=== PATIENT | female | born 1995 | race Caucasian/White ===

== ENCOUNTER → 2017-04-17 | Outpatient (CLI) | payer OTHER ==
[~2017-04-17] MED LIST: AMIT10 PO; AZIT250 PO; BCP'S; BIRTH CONTROL; CEPH500 PO; CODBUTACEC PO; Esgic Tablet1 EACH PO; Excedrin Extra1 EACH PO; FLUO10 PO; FLUT.05NI; IBUP600 PO; METR250 PO; MONT10T PO; ONDA8ODT MM; Ortho Tri-Cycl1 EACH; Prilosec20 MG PO; RXOXYACE PO; SUMA25 PO; Zofran Odt4 MG SL; Zofran4 MG PO
[2017-04-17 12:09] LABS: Specimen Source CERVIX
[2017-04-18 03:28] LABS: Source Cervix
== END ==
LOC: LAB 11:14
PROVIDERS: Advanced Practice Midwife
DX: Z11.3 Encounter for screening for infections with a predominantly sexual mode of transmission (principal)
CPT/HCPCS: 87491; 87591

== ENCOUNTER 2017-06-01 10:44 | Emergency (ER) | payer OTHER ==
[~2017-06-01] VITALS: Ht 162.6 cm; Wt 65.8 kg
[2017-06-01 11:10] LABS: BASOPHILS ABSOLUTE AUTO 0.03 K/mm3 (0.00-0.23); BASOPHILS PERCENT AUTO 0 % (0-2); EOSINOPHILS PERCENT AUTO 1 % (0-6); Hemoglobin 12.3 g/dL (11.5-16.0); IMMATURE GRAN ABSOLUTE AUTO 0.05 K/mm3 (0.00-0.10); IMMATURE GRAN PERCENT AUTO 0 % (0-1); LYMPHOCYTES ABSOLUTE AUTO 1.95 K/mm3 (0.84-5.20); LYMPHOCYTES PERCENT AUTO 14 % (21-46); MONOCYTES ABSOLUTE AUTO 0.55 K/mm3 (0.16-1.47); MONOCYTES PERCENT AUTO 4 % (4-13); Mean Corpuscular HGB 33.9 pg (26.0-34.0); Mean Corpuscular HGB Conc 33.2 g/dL (31.5-36.5); Mean Corpuscular Volume 102 fL (80-100); Mean Platelet Volume 9.5 fL (9.1-12.4); NEUTROPHILS ABSOLUTE AUTO 11.18 K/mm3 (1.96-9.15); NEUTROPHILS PERCENT AUTO 81 % (41-73); Platelet Count 275 K/mm3 (150-400); RDW Coefficient Variation 13.3 % (11.7-14.2); RDW Standard Deviation 50.1 fL (35.1-46.3); Red Blood Cell Count 3.63 M/mm3 (3.80-5.20); White Blood Cell Count 13.86 K/mm3 (4.00-11.30)
[2017-06-01 11:33] LABS: Alanine Aminotransfer (ALT/SGP 13 U/L (12-78); Albumin, Blood 3.5 g/dL (3.4-5.0); Albumin/Globulin Ratio 0.9 (0.8-1.8); Alk Phos 52 U/L (50-136); Anion Gap 8 mmol/L (6-16); Aspartate Aminotrans (AST/SGOT 5 U/L (12-37); Bilirubin, Total 0.3 mg/dL (0.1-1.0); Blood Urea Nitrogen 10 mg/dL (8-24); Bun/Creatinine Ratio 18.6 (12.0-20.0); CO2, Blood 20 mmol/L (21-32); Calcium, Blood 8.7 mg/dL (8.5-10.1); Chloride, Blood 109 mmol/L (98-108); Creatinine, Blood 0.54 mg/dL (0.40-1.00); Globulin, Blood 3.8 g/dL (2.2-4.0); Glomerular Filtration Rate >60 (60-); Glucose, Blood 89 mg/dL (70-99); Potassium, Blood 3.4 mmol/L (3.5-5.5); Sodium, Blood 137 mmol/L (136-145); Total Protein, Blood 7.3 g/dL (6.4-8.2)
[2017-06-01] MEDS ORDERED: Zofran Odt4 MG SL (12:31)
[2017-06-01] MEDS ORDERED: Esgic Tablet1 EACH PO (12:31)
== END 2017-06-01 12:55 | disposition home or self-care (01) ==
LOC: ER 10:44
PROVIDERS: Emergency Medicine
DX: O99.351 Diseases of the nervous system complicating pregnancy, first trimester (principal); G43.909 Migraine, unspecified, not intractable, without status migrainosus; O99.511 Diseases of the respiratory system complicating pregnancy, first trimester; J45.909 Unspecified asthma, uncomplicated; O99.331 Smoking (tobacco) complicating pregnancy, first trimester; F17.200 Nicotine dependence, unspecified, uncomplicated; Z88.1 Allergy status to other antibiotic agents; Z88.8 Allergy status to other drugs, medicaments and biological substances; Z3A.12 12 weeks gestation of pregnancy
CPT/HCPCS: 36415; 80053; 85025; J0780; J2405; J7030

== ENCOUNTER → 2017-10-02 | Outpatient (CLI) | payer OTHER | END | disposition home or self-care (01) | LOC: LAB 14:40 → LAB SHORT 14:40 | DX: Z34.00 Encounter for supervision of normal first pregnancy, unspecified trimester (principal) | CPT/HCPCS: 87081; 87653 ==

== ENCOUNTER 2017-10-24 15:13 | Inpatient (IN) | payer OTHER ==
[~2017-10-24] VITALS: Ht 152.4 cm; Wt 76.2 kg
[2017-10-24 18:13] LABS: BASOPHILS ABSOLUTE AUTO 0.04 K/mm3 (0.00-0.23); BASOPHILS PERCENT AUTO 0 % (0-2); EOSINOPHILS ABSOLUTE AUTO 0.03 K/mm3 (0.00-0.68); EOSINOPHILS PERCENT AUTO 0 % (0-6); IMMATURE GRAN ABSOLUTE AUTO 0.17 K/mm3 (0.00-0.10); IMMATURE GRAN PERCENT AUTO 1 % (0-1); LYMPHOCYTES ABSOLUTE AUTO 1.84 K/mm3 (0.84-5.20); LYMPHOCYTES PERCENT AUTO 8 % (21-46); MONOCYTES ABSOLUTE AUTO 1.12 K/mm3 (0.16-1.47); MONOCYTES PERCENT AUTO 5 % (4-13); Mean Corpuscular HGB Conc 33.3 g/dL (31.5-36.5); Mean Corpuscular Volume 102 fL (80-100); NEUTROPHILS ABSOLUTE AUTO 19.66 K/mm3 (1.96-9.15); NEUTROPHILS PERCENT AUTO 86 % (41-73); Platelet Count 274 K/mm3 (150-400); RDW Coefficient Variation 12.9 % (11.7-14.2); RDW Standard Deviation 48.2 fL (35.1-46.3); Red Blood Cell Count 4.12 M/mm3 (3.80-5.20); White Blood Cell Count 22.86 K/mm3 (4.00-11.30)
[2017-10-25 05:16] LABS: Hematocrit 35.7 % (33.0-51.0); Hemoglobin 12.1 g/dL (11.5-16.0); Mean Corpuscular HGB 34.6 pg (26.0-34.0); Mean Corpuscular HGB Conc 33.9 g/dL (31.5-36.5); Mean Corpuscular Volume 102 fL (80-100); Mean Platelet Volume 9.8 fL (9.1-12.4); Platelet Count 248 K/mm3 (150-400); RDW Standard Deviation 48.2 fL (35.1-46.3)
[2017-10-25 12:48] LABS: Performing Lab LABCORP; Test Name CYTOGENETICS
[2017-10-25 13:19] LABS: U Amphetamine Screen Not Detected; U Barbituate Screen DETECTED; U Benzodiazapine Screen Not Detected; U Buprenorphine Screen Not Detected; U Cannabinoids Screen Not Detected; U Cocaine Screen Not Detected; U Methadone Screen Not Detected; U Methamphetamine Screen Not Detected; U Opiates Screen Not Detected; U Oxycodone Screen DETECTED; U Phencyclidine Screen Not Detected; U Propoxyphene Screen Not Detected
[2017-10-25 15:57] LABS: Hematocrit 36.3 % (33.0-51.0); Hemoglobin 12.3 g/dL (11.5-16.0); Mean Corpuscular HGB 35.4 pg (26.0-34.0); Mean Corpuscular HGB Conc 33.9 g/dL (31.5-36.5); Platelet Count 244 K/mm3 (150-400); RDW Coefficient Variation 13.1 % (11.7-14.2); RDW Standard Deviation 49.8 fL (35.1-46.3); Red Blood Cell Count 3.47 M/mm3 (3.80-5.20); White Blood Cell Count 20.72 K/mm3 (4.00-11.30)
[2017-10-25 16:05] LABS: Mean Corpuscular Volume 105 fL (80-100)
== END 2017-10-25 18:45 | disposition home or self-care (01) | DRG 775 ==
LOC: OBS 15:13 → BC 15:15 → OBS 16:07 → BC 16:09
PROVIDERS: Advanced Practice Midwife
PROC: 10E0XZZ Delivery of Products of Conception, External Approach (ICD-10-PCS; principal; 2017-10-24)
PROC: 10907ZC Drainage of Amniotic Fluid, Therapeutic from Products of Conception, Via Natural or Artificial Opening (ICD-10-PCS; 2017-10-24)
PROC: 0UQMXZZ Repair Vulva, External Approach (ICD-10-PCS; 2017-10-24)
DX: O36.4XX0 Maternal care for intrauterine death, not applicable or unspecified (principal); O99.355 Diseases of the nervous system complicating the puerperium; O99.13 Other diseases of the blood and blood-forming organs and certain disorders involving the immune mechanism complicating the puerperium; Z37.1 Single stillbirth; Z3A.38 38 weeks gestation of pregnancy; O99.52 Diseases of the respiratory system complicating childbirth; J45.909 Unspecified asthma, uncomplicated; O69.81X0 Labor and delivery complicated by cord around neck, without compression, not applicable or unspecified; O70.0 First degree perineal laceration during delivery; D72.829 Elevated white blood cell count, unspecified; G43.909 Migraine, unspecified, not intractable, without status migrainosus; F43.21 Adjustment disorder with depressed mood; O99.345 Other mental disorders complicating the puerperium
CPT/HCPCS: 36415; 51702; 76815; 84443; 85025; 85027; 86592; 86850; 86900; 86901; 99214; J1885; J2405; J2590; J7120

== ENCOUNTER → 2018-05-21 | Outpatient (CLI) | payer OTHER | END | disposition home or self-care (01) | LOC: LAB SHORT 18:16 → LAB 18:16 | PROVIDERS: Advanced Practice Midwife | DX: Z01.419 Encounter for gynecological examination (general) (routine) without abnormal findings (principal) | CPT/HCPCS: G0123 ==

== ENCOUNTER → 2018-11-19 | Outpatient (CLI) | payer OTHER ==
[2018-11-20 06:44] LABS: Candida species (DNA Probe) Negative (NEGATIVE); G. vaginalis (DNA Probe) Positive (NEGATIVE); T. vaginalis (DNA Probe) Negative (NEGATIVE)
== END ==
LOC: LAB 16:50 → LAB SHORT 16:50
PROVIDERS: Advanced Practice Midwife
DX: N76.0 Acute vaginitis (principal)
CPT/HCPCS: 87480; 87510; 87660

== ENCOUNTER → 2019-06-17 | Outpatient (CLI) | payer OTHER ==
[2019-06-19 14:10] LABS: CHLAMYDIA TRACHOMATIS, NAA Positive (Negative); NEISSERIA GONORRHOEAE, NAA Negative (Negative)
== END | disposition home or self-care (01) ==
LOC: LAB SHORT 08:59 → LAB 08:59
PROVIDERS: Obstetrics & Gynecology
DX: Z01.419 Encounter for gynecological examination (general) (routine) without abnormal findings (principal)
CPT/HCPCS: 87491; 87591; G0123

== ENCOUNTER → 2019-07-25 | Outpatient (CLI) | payer OTHER ==
[2019-07-29 09:08] LABS: CHLAMYDIA TRACHOMATIS, NAA Negative (Negative); NEISSERIA GONORRHOEAE, NAA Negative (Negative)
== END | disposition home or self-care (01) ==
LOC: LAB SHORT 10:40 → LAB 10:40
PROVIDERS: Advanced Practice Midwife
DX: Z11.3 Encounter for screening for infections with a predominantly sexual mode of transmission (principal)
CPT/HCPCS: 87491; 87591

== ENCOUNTER 2021-12-02 11:18 | Day surgery (SDC) | payer BC ==
[~2021-12-02] VITALS: Ht 162.6 cm; Wt 85.6 kg
[2021-12-02] MEDS ORDERED: SUMA25 PO (11:57)
== END 2021-12-02 14:13 | disposition home or self-care (01) ==
LOC: ORSCSDS 11:18
PROVIDERS: Podiatrist Foot & Ankle Surgery
PROC: 01BG0ZZ Excision of Tibial Nerve, Open Approach (ICD-10-PCS; principal; 2021-12-02 12:30)
DX: G57.62 Lesion of plantar nerve, left lower limb (principal); J45.909 Unspecified asthma, uncomplicated; E66.9 Obesity, unspecified; Z68.32 Body mass index [BMI] 32.0-32.9, adult; Z87.891 Personal history of nicotine dependence
CPT/HCPCS: 88304; A9270; J1100; J1885; J2001; J2250; J2704; J2795; J3010; J7120

== ENCOUNTER → 2022-06-20 | Outpatient (CLI) | payer BC | END | disposition home or self-care (01) | LOC: LAB SHORT 09:05 → LAB 09:05 | PROVIDERS: Physician Assistant | DX: Z12.4 Encounter for screening for malignant neoplasm of cervix (principal) | CPT/HCPCS: G0145 ==

== ENCOUNTER → 2023-01-15 | Outpatient (CLI) | payer BC ==
[2023-01-17 04:09] LABS: CHLAMYDIA TRACHOMATIS, NAA Negative (Negative)
== END ==
LOC: LAB 11:48 → LAB SHORT 11:48
PROVIDERS: Family Medicine
DX: Z34.01 Encounter for supervision of normal first pregnancy, first trimester (principal); Z3A.01 Less than 8 weeks gestation of pregnancy
CPT/HCPCS: 87086; 87491; 87591

== ENCOUNTER → 2023-07-05 | Outpatient (CLI) | payer BC | LOC: LAB 12:16 → LAB SHORT 12:16 | DX: Z34.83 Encounter for supervision of other normal pregnancy, third trimester (principal) | CPT/HCPCS: 87081; 87150 ==

== ENCOUNTER → 2024-08-18 | Outpatient (CLI) | payer OTHER ==
[~2024-08-18] MED LIST changes: +PRENATAL TABLE1 EAC2 PO
== END ==
LOC: LAB 11:46 → LAB SHORT 11:46
PROVIDERS: Family Medicine
DX: Z12.4 Encounter for screening for malignant neoplasm of cervix (principal)
CPT/HCPCS: G0123

== ENCOUNTER 2024-10-29 18:19 | Inpatient (IN) | payer OTHER ==
[~2024-10-29] VITALS: Ht 162.6 cm; Wt 73.1 kg
[2024-10-29] MEDS ORDERED: Ketorolac Tromethamine 15mg Vial IV ONE (18:50)
[2024-10-29] MEDS ORDERED: NS 1,000 ML IV SCH ×2 (18:50→22:10)
[2024-10-29 19:30] LABS: BASOPHILS ABSOLUTE AUTO 0.05 K/mm3 (0.00-0.23); BASOPHILS PERCENT AUTO 0 % (0-2); EOSINOPHILS ABSOLUTE AUTO 0.01 K/mm3 (0.00-0.68); EOSINOPHILS PERCENT AUTO 0 % (0-6); Hematocrit 34.5 % (33.0-51.0); Hemoglobin 11.7 g/dL (11.5-16.0); IMMATURE GRAN ABSOLUTE AUTO 0.41 K/mm3 (0.00-0.10); IMMATURE GRAN PERCENT AUTO 2 % (0-1); LYMPHOCYTES ABSOLUTE AUTO 0.46 K/mm3 (0.84-5.20); LYMPHOCYTES PERCENT AUTO 2 % (21-46); MONOCYTES ABSOLUTE AUTO 1.06 K/mm3 (0.16-1.47); MONOCYTES PERCENT AUTO 4 % (4-13); Mean Corpuscular HGB Conc 33.9 g/dL (31.5-36.5); Mean Corpuscular Volume 96 fL (80-100); NEUTROPHILS ABSOLUTE AUTO 24.72 K/mm3 (1.96-9.15); NEUTROPHILS PERCENT AUTO 93 % (41-73); NRBC ABSOLUTE 0.00 K/mm3 (0.00-0.02); NRBC Auto 0.0 /100 WBC (0.0-0.2); Platelet Count 265 K/mm3 (150-400); RDW Coefficient Variation 12.2 % (11.7-14.2); RDW Standard Deviation 43.2 fL (35.1-46.3)
[2024-10-29 19:58] LABS: Alanine Aminotransfer (ALT/SGP 62.0 U/L (12-78); Albumin, Blood 3.0 g/dL (3.4-5.0); Albumin/Globulin Ratio 0.6 (0.8-1.8); Anion Gap 10.0 mmol/L (3-11); Aspartate Aminotrans (AST/SGOT 23.0 U/L (12-37); Bilirubin, Total 0.6 mg/dL (0.1-1.0); Blood Urea Nitrogen 12.0 mg/dL (8-24); CO2, Blood 22.0 mmol/L (21-32); Calcium, Blood 9.1 mg/dL (8.5-10.1); Chloride, Blood 104.0 mmol/L (98-108); Creatinine, Blood 0.82 mg/dL (0.40-1.00); Globulin, Blood 4.7 g/dL (2.2-4.0); Glucose, Blood 140.0 mg/dL (70-99); Potassium, Blood 3.0 mmol/L (3.5-5.5); Sodium, Blood 133.0 mmol/L (136-145); Total Protein, Blood 7.7 g/dL (6.4-8.2)
[2024-10-29] MEDS ORDERED: FentaNYL Citrate 50 MCG/ML 2 ML Injection IV ONE ×2 (21:20→22:15)
[2024-10-29] MEDS ORDERED: HYDROmorphone HCl/Pf 1MG SYR IV PRN (22:35)
[2024-10-29] MEDS ORDERED: Magnesium Hydroxide Conc 10 ML UDC PO PRN (22:50)
[2024-10-29] MEDS ORDERED: Vancomycin (Pharmacy Consult) IV SCH (23:00)
[2024-10-29] MEDS ORDERED: Ondansetron HCl 2 MG / ML 2ML Vial IV PRN (23:10)
[2024-10-30] MEDS ORDERED: Ketorolac Tromethamine 15mg Vial IV ONE (00:55)
[2024-10-30 05:57] LABS: BASOPHILS ABSOLUTE AUTO 0.03 K/mm3 (0.00-0.23); BASOPHILS PERCENT AUTO 0 % (0-2); EOSINOPHILS ABSOLUTE AUTO 0.02 K/mm3 (0.00-0.68); EOSINOPHILS PERCENT AUTO 0 % (0-6); Hematocrit 27.2 % (33.0-51.0); Hemoglobin 9.3 g/dL (11.5-16.0); IMMATURE GRAN ABSOLUTE AUTO 0.32 K/mm3 (0.00-0.10); IMMATURE GRAN PERCENT AUTO 1 % (0-1); LYMPHOCYTES ABSOLUTE AUTO 0.93 K/mm3 (0.84-5.20); LYMPHOCYTES PERCENT AUTO 4 % (21-46); MONOCYTES ABSOLUTE AUTO 1.39 K/mm3 (0.16-1.47); MONOCYTES PERCENT AUTO 6 % (4-13); Mean Corpuscular HGB Conc 34.2 g/dL (31.5-36.5); Mean Corpuscular Volume 96 fL (80-100); NEUTROPHILS ABSOLUTE AUTO 20.24 K/mm3 (1.96-9.15); NEUTROPHILS PERCENT AUTO 88 % (41-73); NRBC ABSOLUTE 0.00 K/mm3 (0.00-0.02); NRBC Auto 0.0 /100 WBC (0.0-0.2); Platelet Count 218 K/mm3 (150-400); RDW Coefficient Variation 12.3 % (11.7-14.2); RDW Standard Deviation 43.5 fL (35.1-46.3)
[2024-10-30 07:00] LABS: Alanine Aminotransfer (ALT/SGP 43.0 U/L (12-78); Albumin, Blood 2.3 g/dL (3.4-5.0); Albumin/Globulin Ratio 0.7 (0.8-1.8); Anion Gap 11.0 mmol/L (3-11); Aspartate Aminotrans (AST/SGOT 20.0 U/L (12-37); Bilirubin, Total 0.6 mg/dL (0.1-1.0); Blood Urea Nitrogen 11.0 mg/dL (8-24); CO2, Blood 20.0 mmol/L (21-32); Calcium, Blood 8.2 mg/dL (8.5-10.1); Chloride, Blood 109.0 mmol/L (98-108); Creatinine, Blood 0.71 mg/dL (0.40-1.00); Globulin, Blood 3.5 g/dL (2.2-4.0); Glucose, Blood 108.0 mg/dL (70-99); Potassium, Blood 3.4 mmol/L (3.5-5.5); Sodium, Blood 137.0 mmol/L (136-145); Total Protein, Blood 5.8 g/dL (6.4-8.2)
[2024-10-30] MEDS ORDERED: MORPHINE SULFATE 1 MG/ML IV PRN (08:25)
[2024-10-30] MEDS ORDERED: HYDROmorphone HCl/Pf 1MG SYR IV ONE (08:25)
[2024-10-30] MEDS ORDERED: Lactobacil 2-S.Thermo-Bifido 1 1 Cap PO SCH (09:00)
[2024-10-30] MEDS ORDERED: Enoxaparin 40 MG/0.4 ML SYR SC SCH (09:00)
[2024-10-30 11:51] LABS: BASOPHILS ABSOLUTE AUTO 0.04 K/mm3 (0.00-0.23); BASOPHILS PERCENT AUTO 0 % (0-2); EOSINOPHILS ABSOLUTE AUTO 0.12 K/mm3 (0.00-0.68); EOSINOPHILS PERCENT AUTO 1 % (0-6); Hematocrit 28.8 % (33.0-51.0); Hemoglobin 9.5 g/dL (11.5-16.0); IMMATURE GRAN ABSOLUTE AUTO 0.41 K/mm3 (0.00-0.10); IMMATURE GRAN PERCENT AUTO 2 % (0-1); LYMPHOCYTES ABSOLUTE AUTO 0.79 K/mm3 (0.84-5.20); LYMPHOCYTES PERCENT AUTO 4 % (21-46); MONOCYTES ABSOLUTE AUTO 1.27 K/mm3 (0.16-1.47); MONOCYTES PERCENT AUTO 6 % (4-13); Mean Corpuscular HGB Conc 33.0 g/dL (31.5-36.5); Mean Corpuscular Volume 98 fL (80-100); NEUTROPHILS ABSOLUTE AUTO 20.12 K/mm3 (1.96-9.15); NEUTROPHILS PERCENT AUTO 88 % (41-73); NRBC ABSOLUTE 0.00 K/mm3 (0.00-0.02); NRBC Auto 0.0 /100 WBC (0.0-0.2); Platelet Count 219 K/mm3 (150-400); RDW Coefficient Variation 12.7 % (11.7-14.2); RDW Standard Deviation 45.4 fL (35.1-46.3)
[2024-10-30 15:18] VITALS: BP 118/73
[2024-10-30] MEDS ORDERED: NS 250 ML IV PRN (15:40)
[2024-10-30] MEDS ORDERED: HYDROmorphone HCl/Pf 1MG SYR IV PRN (16:00)
[2024-10-30] MEDS ORDERED: IBUP400 PO (16:18)
[2024-10-30] MEDS ORDERED: ZEBUTAL 50-3251 EAC1 PO (16:18)
[2024-10-30] MEDS ORDERED: IMITREX100 MG PO (16:19)
[2024-10-30] MEDS ORDERED: EXTRA PAIN REL1 EAC2 PO (16:22)
[2024-10-30] MEDS ORDERED: BENADRYL25 M1 PO (16:23)
[2024-10-30] MEDS ORDERED: ALBU2.5V5 INH (16:24)
[2024-10-30] MEDS ORDERED: ALPR.5 PO (16:25)
[2024-10-30 20:02] VITALS: BP 125/70
[2024-10-30] MEDS ORDERED: diphenhydrAMINE HCl 12.5 MG/5 ML 5MLUDC (Alcohol/Dye Free) PO PRN (20:05)
[2024-10-30] MEDS ORDERED: Albuterol 2.5 MG/3 ML VIAL INH PRN (20:05)
[2024-10-30] MEDS ORDERED: Acetaminophen/Aspirin/Caffeine 250/250/65 MG PO PRN (20:30)
[2024-10-30 23:11] VITALS: BP 124/94
[2024-10-31 02:20] LABS: BASOPHILS ABSOLUTE AUTO 0.03 K/mm3 (0.00-0.23); BASOPHILS PERCENT AUTO 0 % (0-2); EOSINOPHILS ABSOLUTE AUTO 0.16 K/mm3 (0.00-0.68); EOSINOPHILS PERCENT AUTO 1 % (0-6); Hematocrit 27.4 % (33.0-51.0); Hemoglobin 9.2 g/dL (11.5-16.0); IMMATURE GRAN ABSOLUTE AUTO 0.33 K/mm3 (0.00-0.10); IMMATURE GRAN PERCENT AUTO 2 % (0-1); LYMPHOCYTES ABSOLUTE AUTO 0.95 K/mm3 (0.84-5.20); LYMPHOCYTES PERCENT AUTO 5 % (21-46); MONOCYTES ABSOLUTE AUTO 0.80 K/mm3 (0.16-1.47); MONOCYTES PERCENT AUTO 5 % (4-13); Mean Corpuscular HGB Conc 33.6 g/dL (31.5-36.5); Mean Corpuscular Volume 97 fL (80-100); NEUTROPHILS ABSOLUTE AUTO 15.45 K/mm3 (1.96-9.15); NEUTROPHILS PERCENT AUTO 87 % (41-73); NRBC ABSOLUTE 0.00 K/mm3 (0.00-0.02); NRBC Auto 0.0 /100 WBC (0.0-0.2); Platelet Count 193 K/mm3 (150-400); RDW Coefficient Variation 12.8 % (11.7-14.2); RDW Standard Deviation 45.1 fL (35.1-46.3)
[2024-10-31 02:42] LABS: Alanine Aminotransfer (ALT/SGP 46 U/L (12-78); Albumin, Blood 2.0 g/dL (3.4-5.0); Albumin/Globulin Ratio 0.6 (0.8-1.8); Anion Gap 7 mmol/L (3-11); Aspartate Aminotrans (AST/SGOT 30 U/L (12-37); Bilirubin, Total 0.5 mg/dL (0.1-1.0); Blood Urea Nitrogen 7 mg/dL (8-24); CO2, Blood 24 mmol/L (21-32); Calcium, Blood 8.0 mg/dL (8.5-10.1); Chloride, Blood 111 mmol/L (98-108); Creatinine, Blood 0.68 mg/dL (0.40-1.00); Globulin, Blood 3.5 g/dL (2.2-4.0); Glucose, Blood 123 mg/dL (70-99); Potassium, Blood 3.0 mmol/L (3.5-5.5); Sodium, Blood 139 mmol/L (136-145); Total Protein, Blood 5.5 g/dL (6.4-8.2); Vancomycin, Trough 12.3 ug/mL (5.0-10.0)
[2024-10-31 03:38] VITALS: BP 107/82
--- NOTE | 2024-10-31 04:55 | NUR ---
SHIFT SUMMARY PT A/OX4. NO RESP DISTRESS. ST ON MONITOR INITIALLY AND WITH EXERTION. SR 80-90'S WHILE AT REST LATER IN SHIFT. PT HAD MULTIPLE VISITORS SHOWING SUPPORT. HER DAD STAYED WITH HER IN ROOM ALL NIGHT. PT INITIALLY HAD HEADACHE HOSPITALIST NOTIFIED THAT HOME MEDICATIONS WERE RECONCILED. PRN MEDICATION GIVEN WITH GOOD RELIEF. NO FEVER THIS SHIFT. MORPHINE MEDICARE INSURANCE SPECIALIST UTILIZED. PT WAS ABLE TO AMBULATE SEVERAL TIMES WITH SBA TO RESTROOM. PT TROY PO INTAKE WITH MINIMAL NAUSEA. WOUND TO R INNER THIGH DRAINING SEROSANGUINOUS FLUID. PT COMPLIANT WITH ALL CARE AND ABLE TO MAKE NEEDS KNOWN. CALL LIGHT REMAINED IN REACH AND BED IN LOWEST POSITION. NO SIGNIFICANT EVENTS DURING SHIFT.
--- NOTE | 2024-10-31 05:55 | NUR ---
PT NOTIFIED THIS RN THAT SHE HAD A HEADACHE. TEMP CHECKED 102.2. PT GIVEN TYLENOL AND OXYCODONE FOR 9/10 HEADACHE AND FEVER. PT AMBULATED TO WITH SBA. SHE BECAME NAUSEATED AND VOMITED SHORTLY AFTER TAKING PO MEDICATIONS. MEDICATION TABLETS VISUALIZED IN EMESIS. PT MEDICATED WITH ZOFRAN 8MG IV AND ASSISTED BACK TO BED WHERE NAUSEA SUBSIDED. PT GIVEN IBUPROFEN 800MG PO. FRESH ICE WATER PROVIDED. HR NOTED TO BE ELEVATED @ 110-130'S SINUS TACH. CALL LIGHT IN REACH AND BED IN LOWEST POSITION.
[2024-10-31 08:32] VITALS: BP 126/78
[2024-10-31] MEDS ORDERED: Albumin (Human) 25gm/100ml 100 ML IV ONE (13:00)
[2024-10-31 16:17] VITALS: BP 99/65
[2024-10-31 16:30] LABS: Total Iron Binding Capacity 192 ug/dL (250-450)
[2024-10-31 16:43] VITALS: BP 106/67
--- NOTE | 2024-10-31 17:00 | NUR ---
TRANSFER NOTE PT ALERT, ORINETED X4; CALM AND COOPERATIVE WITH CARE. PT RESTING IN BED, UP WITH SBA TO BATHROOM TO MANAGE CORDS. PT REPORTING HEADACHE AND PAIN TO RIGHT UPPER THIGH, STARTING THIS AM ON MORPHINE MANUFACTURING MAINTENANCE MECHANIC, TRANSITIONED TO IV PUSH AND PO MEDICATIONS, APPEARS TO BE TOLERATING WELL. DENIES CHEST PAIN/PRESSURE, SOB, NAUSEA, DIZZINESS AND NUMB/TINGLING T/O SHIFT. TELE SINUS 90-100'S, BP STABLE. SPO2 >90% ON RA, BREATHING EVEN AND UNLABORED. ABD SOFT, NONTENDER, +BT. RIGHT UPPER THIGH SWOLLEN AND RED, MARKED OUTLINES NOTED; GREEN DRAINAGE NOTED TO OPEN WOUND. OTHER VSS. NO OTHER ACUTE CHANGES NOTED. REPORT GIVEN TO RN ASSUMING CARE OF PRASANNA. PT LEFT ROOM VIA WHEELCHAIR.
[2024-10-31 17:01] VITALS: BP 120/93
--- NOTE | 2024-10-31 17:06 | NUR ---
TRANSFER NOTE: PATIENT BROUGHT TO UNIT VIA WHEELCHAIR. SHE WAS ABLE TO SELF TRANSFER TO THE BED. PATIENT SETTLED IN ROOM. REDNESS AND SWELLING WITH BOARDER MARKINGS VISIBLE OF R INNER UPPER THIGH. PATIENT REPORTS 6/10 PAIN, BUT STATES TOLERABLE. CALL LIGHT PROVIDED, NO SIGNS OR SYMPTOMS OF DISTRESS, PLAN OF CARE ONGOING.
[2024-10-31] MEDS ORDERED: Ondansetron HCl 2 MG / ML 2ML Vial IV PRN (17:50)
[2024-10-31 19:27] VITALS: BP 129/84
[2024-10-31] MEDS ORDERED: CefTRIAXone Sodium 1,000 MG in NS 100 ML IV SCH (21:00)
[2024-11-01 04:07] VITALS: BP 129/87
--- NOTE | 2024-11-01 05:24 | NUR ---
SHIFT SUMMARY NOC PT A/O X 4. PLEASANT AND COOPERATIVE WITH CARE VSS. NO ACUTE CHANGES TO REPORT. PT HAS MEPILEX OVER ABCESS ON R INNER THIGH THAT PT HAS BEEN CHANGING INDEPDENTLY. ABCESS HAS MILD SEROSANGUINOUS DRAINAGE. PT PAIN AND CASTAÑEDA BEING MANAGED PER EMAR. PT SPIKED TEMP 102.2F DURING SHIFT. AND GIV3N IBUPROFEN/TYLENOL AND TEMP DECREASED 99.4F. POTASSIUM 3.0 YESTERDAY AND 100 MEQ KCL GIVEN, CMP PENDING. PT HAS BILATERAL POWERGLIDES IN PLACE INFUSING IV ABX PER EMAR. PT CURRENTLY RESTING WITH BED IN LOWEST POSITION, AND CALL LIGHT WITHIN REACH.
[2024-11-01 05:56] LABS: Alanine Aminotransfer (ALT/SGP 147.0 U/L (12-78); Albumin, Blood 2.3 g/dL (3.4-5.0); Albumin/Globulin Ratio 0.6 (0.8-1.8); Anion Gap 12.0 mmol/L (3-11); Aspartate Aminotrans (AST/SGOT 139.0 U/L (12-37); Bilirubin, Total 1.2 mg/dL (0.1-1.0); Blood Urea Nitrogen 6.0 mg/dL (8-24); CO2, Blood 21.0 mmol/L (21-32); Calcium, Blood 8.7 mg/dL (8.5-10.1); Chloride, Blood 108.0 mmol/L (98-108); Creatinine, Blood 0.61 mg/dL (0.40-1.00); Globulin, Blood 4.0 g/dL (2.2-4.0); Glucose, Blood 107.0 mg/dL (70-99); Potassium, Blood 3.9 mmol/L (3.5-5.5); Sodium, Blood 137.0 mmol/L (136-145); Total Protein, Blood 6.3 g/dL (6.4-8.2)
[2024-11-01 06:34] LABS: BASOPHILS ABSOLUTE AUTO 0.04 K/mm3 (0.00-0.23); BASOPHILS PERCENT AUTO 0 % (0-2); EOSINOPHILS ABSOLUTE AUTO 0.13 K/mm3 (0.00-0.68); EOSINOPHILS PERCENT AUTO 1 % (0-6); Hematocrit 26.8 % (33.0-51.0); Hemoglobin 8.8 g/dL (11.5-16.0); IMMATURE GRAN ABSOLUTE AUTO 0.17 K/mm3 (0.00-0.10); IMMATURE GRAN PERCENT AUTO 1 % (0-1); LYMPHOCYTES ABSOLUTE AUTO 1.26 K/mm3 (0.84-5.20); LYMPHOCYTES PERCENT AUTO 6 % (21-46); MONOCYTES ABSOLUTE AUTO 1.06 K/mm3 (0.16-1.47); MONOCYTES PERCENT AUTO 5 % (4-13); Mean Corpuscular HGB Conc 32.8 g/dL (31.5-36.5); Mean Corpuscular Volume 98 fL (80-100); NEUTROPHILS ABSOLUTE AUTO 19.03 K/mm3 (1.96-9.15); NEUTROPHILS PERCENT AUTO 88 % (41-73); NRBC ABSOLUTE 0.00 K/mm3 (0.00-0.02); NRBC Auto 0.0 /100 WBC (0.0-0.2); Platelet Count 230 K/mm3 (150-400); RDW Coefficient Variation 13.1 % (11.7-14.2); RDW Standard Deviation 46.6 fL (35.1-46.3)
[2024-11-01] MEDS ORDERED: Iron Dextran 50 MG / ML 2ML Vial IV ONE (07:50)
[2024-11-01 07:59] VITALS: BP 130/83
[2024-11-01] MEDS ORDERED: CeFAZolin Sodium 2,000 MG in NS 100 ML IV SCH (08:00)
[2024-11-01] MEDS ORDERED: Iron Dextran 975 MG in NS 250 ML IV ONE (09:30)
[2024-11-01] MEDS ORDERED: CefTRIAXone Sodium 1,000 MG in NS 100 ML IV SCH (10:30)
[2024-11-01] MEDS ORDERED: Vancomycin (Pharmacy Consult) IV SCH (11:00)
[2024-11-01 15:29] VITALS: BP 132/97
[2024-11-01] MEDS ORDERED: Clindamycin 900mg in D5W 50ML 50 ML IV SCH (16:00)
[2024-11-01] MEDS ORDERED: NS 1,000 ML IV SCH (17:00)
--- NOTE | 2024-11-01 19:40 | NUR ---
SHIFT SUMMARY PT CONT LEVEL OF CARE. PT NOTED TO HAVE WORSENING INCREASED REDNESS TO R THIGH. NEW ARE MARKED WITH SKIN MARKER. PT RECEIEVED A REPEAT CT TODAY. AND STARTED ON MORE AGGRESSIVE ABX. PT HAS RECEIVED PRN MEDICATION TODAY TO HELP CONTROL PAIN SEE MAR FOR DETAILS. PT ALSO RECEIVED IV IRON TODAY D/T CHRONIC ANEMIA.
[2024-11-02 00:36] VITALS: BP 148/97
--- NOTE | 2024-11-02 01:04 | NUR ---
PT HAD C/O OF INCREASED REDNESS AND SWELLING IN RIGHT UPPER INNER THIGH CELLULITS, IT HAS CROSSED THE BORDER DRAWN ON DURING DAY SHIFT AND IS RIGHT ABOVE THE R KNEE. THE SKIN ON THE UPPER THIGH IS VERY TAUT. VS TAKEN AND PT HYPERTENSIVE 148/97 WITH HR 112. HOSPITALIST NOTIFIED AND REVIEWED CHART AND CAME TO SEE PT. STAT LACTIC ACID, CBC, CMP, AND REPEAT R LOWER EXTREMITY CT W/CONTRAST ORDERED. HOSPITALIST NOTED THAT IF LABS ARE WORSE THAT PT WILL BE TRANSFERED TO PCU.
[2024-11-02 01:25] LABS: Hematocrit 26.8 % (33.0-51.0); Hemoglobin 9.0 g/dL (11.5-16.0); Mean Corpuscular HGB Conc 33.6 g/dL (31.5-36.5); Mean Corpuscular Volume 98 fL (80-100); NRBC ABSOLUTE 0.00 K/mm3 (0.00-0.02); NRBC Auto 0.0 /100 WBC (0.0-0.2); Platelet Count 274 K/mm3 (150-400); RDW Coefficient Variation 12.9 % (11.7-14.2); RDW Standard Deviation 46.1 fL (35.1-46.3)
[2024-11-02 02:05] LABS: Alanine Aminotransfer (ALT/SGP 174.0 U/L (12-78); Albumin, Blood 2.0 g/dL (3.4-5.0); Albumin/Globulin Ratio 0.5 (0.8-1.8); Anion Gap 11.0 mmol/L (3-11); Aspartate Aminotrans (AST/SGOT 136.0 U/L (12-37); Bilirubin, Total 1.0 mg/dL (0.1-1.0); Blood Urea Nitrogen 6.0 mg/dL (8-24); CO2, Blood 23.0 mmol/L (21-32); Calcium, Blood 8.5 mg/dL (8.5-10.1); Chloride, Blood 107.0 mmol/L (98-108); Creatinine, Blood 0.64 mg/dL (0.40-1.00); Globulin, Blood 4.2 g/dL (2.2-4.0); Glucose, Blood 131.0 mg/dL (70-99); Potassium, Blood 2.8 mmol/L (3.5-5.5); Sodium, Blood 138.0 mmol/L (136-145); Total Protein, Blood 6.2 g/dL (6.4-8.2)
--- NOTE | 2024-11-02 02:46 | NUR ---
HOSPITALIST NOTIFIED THAT POTASSIUM 2.8, ORDER FOR IV KCL 40 MEQ X 1, AND TELEMETRY REINITIATED PER PROTOCOL.
[2024-11-02 04:10] VITALS: BP 118/73
--- NOTE | 2024-11-02 05:03 | NUR ---
SHIFT SUMMARY NOC PT A/O X 4. PLEASANT AND COOPERATIVE [facility] CARE. PT R UPPER INNER THIGH CELLULITIS IS GETTING WORSE, IT IS MUCH MORE SWOLLEN AND HARD TO THE TOUCH, REDNESS HAS SPREAD BELOW THE NEW BORDER DRAWN YESTERDAY AND IS ABOVE THE KNEE NOW. HOSPTIALIST NOTIFIED OF CHANGES AND ASSESSED PT. LABS ORDERED SHOWED SLIGHTLY ELEVATED WBC FROM PRIOR DAY AND LACTIC 0.3. POTASSIUM 2.8 AND ORDERS FOR IV 40 MEQ KCL AND TELEMETRY PER PROTOCOL PLACED. PT ON TELE SINUS RHYTHM IN 'S. HOSPITALIST ALSO ORDERED REPEAT R LOWER EXTREMITY CT WITH CONTRAST THAT IS PENDING RESULTS. PT PAIN AND NAUSEA BEING MANAGED PER EMAR. PT CURRENTLY RESTING WITH BED IN LOWEST POSITION, AND CALL LIGHT WITHIN REACH.
--- NOTE | 2024-11-02 06:46 | NUR ---
SHIFT SUMMARY NOC PT A/O X 4. PLEASANT AND COOPERATIVE [facility] CARE. AFEBRILE ENTIRE SHIFT. PT R UPPER INNER THIGH CELLULITIS IS GETTING WORSE, IT IS MUCH MORE SWOLLEN AND HARD TO THE TOUCH, REDNESS HAS SPREAD BELOW THE NEW BORDER DRAWN YESTERDAY AND IS ABOVE THE KNEE NOW. HOSPTIALIST NOTIFIED OF CHANGES AND ASSESSED PT. LABS ORDERED SHOWED SLIGHTLY ELEVATED WBC FROM PRIOR DAY AND LACTIC 0.3. POTASSIUM 2.8 AND ORDERS FOR IV 40 MEQ KCL AND TELEMETRY PER PROTOCOL PLACED. PT ON TELE SINUS RHYTHM IN 90'S. HOSPITALIST ALSO ORDERED REPEAT R LOWER EXTREMITY CT WITH CONTRAST THAT IS PENDING RESULTS. PT PAIN AND NAUSEA BEING MANAGED PER EMAR. PT CURRENTLY RESTING WITH BED IN LOWEST POSITION, AND CALL LIGHT WITHIN REACH.
[2024-11-02 08:00] VITALS: BP 140/94
[2024-11-02] MEDS ORDERED: Potassium Chl 20MEQ/Water100ML 100 ML IV SCH (08:15)
--- NOTE | 2024-11-02 09:28 | NUR ---
TELE STRIP SCANNED TELE STRIP DATED 11/02/24 AT 0741 VERIFIED NSR.
[2024-11-02 11:23] LABS: Vancomycin, Trough 12.3 ug/mL (5.0-10.0)
[2024-11-02 11:30] VITALS: BP 114/70
[2024-11-02 15:21] VITALS: BP 122/85
--- NOTE | 2024-11-02 18:29 | NUR ---
SHIFT SUMMARY PT CONT LEVEL OF CARE. INCREASE REDNESS AND SWELLING TO R THIGH PLAN IS TO CONT IV ABX. PT CONT TO STRUGGLE WITH PAIN MANAGEMENT AND HAS BEEN MEDICATED THROUGHOUT SHIFT SEE MAR FOR DETAILS.
[2024-11-02 19:27] VITALS: BP 125/81
[2024-11-03 00:11] VITALS: BP 108/63
[2024-11-03 03:20] VITALS: BP 117/71
[2024-11-03 04:57] LABS: Hematocrit 25.8 % (33.0-51.0); Hemoglobin 8.5 g/dL (11.5-16.0); Mean Corpuscular HGB Conc 32.9 g/dL (31.5-36.5); Mean Corpuscular Volume 98 fL (80-100); NRBC ABSOLUTE 0.00 K/mm3 (0.00-0.02); NRBC Auto 0.0 /100 WBC (0.0-0.2); Platelet Count 323 K/mm3 (150-400); RDW Coefficient Variation 13.2 % (11.7-14.2); RDW Standard Deviation 46.7 fL (35.1-46.3)
[2024-11-03 05:24] LABS: Anion Gap 9.0 mmol/L (3-11); Blood Urea Nitrogen 4.0 mg/dL (8-24); CO2, Blood 25.0 mmol/L (21-32); Calcium, Blood 8.5 mg/dL (8.5-10.1); Chloride, Blood 111.0 mmol/L (98-108); Creatinine, Blood 0.63 mg/dL (0.40-1.00); Glucose, Blood 99.0 mg/dL (70-99); Potassium, Blood 3.7 mmol/L (3.5-5.5); Sodium, Blood 141.0 mmol/L (136-145)
[2024-11-03 07:53] VITALS: BP 136/93
[2024-11-03] MEDS ORDERED: FentaNYL Citrate 50 MCG/ML 2 ML Injection IV PRN (08:45)
[2024-11-03] MEDS ORDERED: HYDROmorphone HCl/Pf 1MG SYR IV PRN (16:20)
--- NOTE | 2024-11-03 18:35 | NUR ---
TELE STRIPS VERIFICATION THIS RN AGREES WITH ANABELL MADRIGAL ASSESSMENT OF TELE STRIPS.
--- NOTE | 2024-11-03 19:28 | NUR ---
SHIFT SUMMARY PT CONT LEVEL OF CARE. PT NOTED TO HAVE IMPROVEMENTS TO R THIGH CELLULITIS, PT CONT TO STRUGGLE WITH PAIN AND HAS RECIEVED PRN PAIN MEDICATION SEE MAR FOR MORE DETAILS.
[2024-11-03 19:49] VITALS: BP 133/92
[2024-11-03 23:51] VITALS: BP 113/76
[2024-11-04 04:16] VITALS: BP 120/74
[2024-11-04 05:11] LABS: BASOPHILS ABSOLUTE AUTO 0.07 K/mm3 (0.00-0.23); BASOPHILS PERCENT AUTO 0 % (0-2); EOSINOPHILS ABSOLUTE AUTO 0.19 K/mm3 (0.00-0.68); EOSINOPHILS PERCENT AUTO 1 % (0-6); Hematocrit 29.5 % (33.0-51.0); Hemoglobin 9.7 g/dL (11.5-16.0); IMMATURE GRAN ABSOLUTE AUTO 0.88 K/mm3 (0.00-0.10); IMMATURE GRAN PERCENT AUTO 4 % (0-1); LYMPHOCYTES ABSOLUTE AUTO 2.77 K/mm3 (0.84-5.20); LYMPHOCYTES PERCENT AUTO 13 % (21-46); MONOCYTES ABSOLUTE AUTO 1.37 K/mm3 (0.16-1.47); MONOCYTES PERCENT AUTO 6 % (4-13); Mean Corpuscular HGB Conc 32.9 g/dL (31.5-36.5); Mean Corpuscular Volume 98 fL (80-100); NEUTROPHILS ABSOLUTE AUTO 16.01 K/mm3 (1.96-9.15); NEUTROPHILS PERCENT AUTO 75 % (41-73); NRBC ABSOLUTE 0.00 K/mm3 (0.00-0.02); NRBC Auto 0.0 /100 WBC (0.0-0.2); Platelet Count 446 K/mm3 (150-400); RDW Coefficient Variation 13.2 % (11.7-14.2); RDW Standard Deviation 47.7 fL (35.1-46.3)
[2024-11-04 05:35] LABS: Alanine Aminotransfer (ALT/SGP 97.0 U/L (12-78); Albumin, Blood 2.3 g/dL (3.4-5.0); Albumin/Globulin Ratio 0.5 (0.8-1.8); Anion Gap 9.0 mmol/L (3-11); Aspartate Aminotrans (AST/SGOT 20.0 U/L (12-37); Bilirubin, Total 0.5 mg/dL (0.1-1.0); Blood Urea Nitrogen 6.0 mg/dL (8-24); CO2, Blood 26.0 mmol/L (21-32); Calcium, Blood 8.8 mg/dL (8.5-10.1); Chloride, Blood 107.0 mmol/L (98-108); Creatinine, Blood 0.66 mg/dL (0.40-1.00); Globulin, Blood 4.7 g/dL (2.2-4.0); Glucose, Blood 102.0 mg/dL (70-99); Potassium, Blood 3.7 mmol/L (3.5-5.5); Sodium, Blood 138.0 mmol/L (136-145); Total Protein, Blood 7.0 g/dL (6.4-8.2)
--- NOTE | 2024-11-04 06:28 | NUR ---
SURVEYOR SUMMARY PT A&OX4, VSS. PT HAS BEEN ASLEEP ON AND OFF THROUGHOUT THE NIGHT. CHEST RISE/RESPIRATIONS NOTED. MULTIPLE PAIN MEDS GIVEN WITH MILD EFFECT. SEE EMAR FOR DETAILS. REMAINS ON TELE. SR AT 92. PG IN MEDHAT WNL WITH THE EXCEPTION OF NOT BEING ABLE TO DRAW. PT VOICES IMPROVEMENT IN R INNER THIGH CELLULITIS AND DECREASE IN REDNESS. CONTINUING TO RECEIVE REGULAR VANCOMYCIN AND CLINDAMYCIN INF. BED RAILS UP X 2, BED IN LOWEST POSITION, BED WHEELS LOCKED, PERSONAL BELONGINGS AND CALL LIGHT WITHIN REACH FOR SAFETY.
[2024-11-04 07:22] VITALS: BP 121/84
[2024-11-04 11:54] LABS: Vancomycin, Trough 18.4 ug/mL (5.0-10.0)
--- NOTE | 2024-11-04 18:03 | NUR ---
SHIFT SUMMARY PT IS A&OX4, PLEASANT AND COOPERATIVE WITH CARE. VSS. PT REPORTS A DECREASE IN REDDNESS IN RIGHT UPPER THIGH. PT REPORTS PAIN IN RIGHT INNER THIGH AND IS BEING MEDICATED PER EMAR. A FENTANYL PATCH WAS ORDERED AND PLACED ON LEFT UPER SHOULDER. PT HAS A PG IN [facility], CURRENTLY SALINE LOCKED. CALL LIGHT WITHIN REACH OF PATIENT.
[2024-11-04 18:21] VITALS: BP 121/66
[2024-11-04 19:43] VITALS: BP 133/79
[2024-11-05] VITALS (7 sets, daily range): BP systolic 111–145; BP diastolic 56–90
--- NOTE | 2024-11-05 03:52 | NUR ---
SHIFT SUMMARY ADMITTED FOR RIGHT UPPER THIGH CELLULITIS. FULL CODE. PLAN IS FOR IV ANTIB RX. PAIN MEDICATIONS GIVEN THIS SHIFT. FENTANYL PATCH IN PLACE. ON RA. REGULAR DIET. TELEMETRY: NSR @ 91 BPM. A&O X4. INDEPENDENT IN ROOM. SURGICAL CONSULT IS DR. PASTOR, NO SURGERY IS PLANNED. POWERGLIDE IN LUE. BLOOD CX POSITIVE.
[2024-11-05 09:04] LABS: Hematocrit 29.6 % (33.0-51.0); Hemoglobin 9.7 g/dL (11.5-16.0); Mean Corpuscular HGB Conc 32.8 g/dL (31.5-36.5); Mean Corpuscular Volume 99 fL (80-100); NRBC ABSOLUTE 0.00 K/mm3 (0.00-0.02); NRBC Auto 0.0 /100 WBC (0.0-0.2); Platelet Count 467 K/mm3 (150-400); RDW Coefficient Variation 13.2 % (11.7-14.2); RDW Standard Deviation 47.1 fL (35.1-46.3)
[2024-11-05 09:24] LABS: BAND PERCENT MAN 1 % (0-8); BASOPHILS ABSOLUTE MAN 0.16 K/mm3 (0.00-0.23); BASOPHILS PERCENT MAN 1 % (0-2); EOSINOPHILS ABSOLUTE MAN 0.48 K/mm3 (0.00-0.68); EOSINOPHILS PERCENT MAN 3 % (0-6); LYMPHOCYTES ABSOLUTE MAN 2.42 K/mm3 (0.84-5.20); LYMPHOCYTES PERCENT MAN 15 % (21-46); METAMYELOCYTE ABSOLUTE MAN 0.32 K/mm3 (0.00-0.00); METAMYELOCYTE PERCENT MAN 2 % (0-0); MONOCYTES ABSOLUTE MAN 1.45 K/mm3 (0.16-1.47); MONOCYTES PERCENT MAN 9 % (4-13); MYELOCYTE ABSOLUTE MAN 0.16 K/mm3 (0.00-0.00); MYELOCYTE PERCENT MAN 1 % (0-0); NEUTROPHILS ABSOLUTE MAN 10.97 K/mm3 (1.96-9.15); PLASMA CELL ABSOLUTE MAN 0.16 K/mm3 (0.00-0.00); PLASMA CELLS PERCENT MAN 1 % (0-0); SEG NEUTROPHILS PERCENT MAN 67 % (41-73)
[2024-11-05 09:26] LABS: Alanine Aminotransfer (ALT/SGP 74.0 U/L (12-78); Albumin, Blood 2.4 g/dL (3.4-5.0); Albumin/Globulin Ratio 0.5 (0.8-1.8); Anion Gap 10.0 mmol/L (3-11); Aspartate Aminotrans (AST/SGOT 20.0 U/L (12-37); Bilirubin, Total 0.4 mg/dL (0.1-1.0); Blood Urea Nitrogen 6.0 mg/dL (8-24); CO2, Blood 26.0 mmol/L (21-32); Calcium, Blood 8.9 mg/dL (8.5-10.1); Chloride, Blood 106.0 mmol/L (98-108); Creatinine, Blood 0.6 mg/dL (0.40-1.00); Globulin, Blood 4.5 g/dL (2.2-4.0); Glucose, Blood 108.0 mg/dL (70-99); Potassium, Blood 3.9 mmol/L (3.5-5.5); Sodium, Blood 138.0 mmol/L (136-145); Total Protein, Blood 6.9 g/dL (6.4-8.2)
--- NOTE | 2024-11-05 18:20 | NUR ---
SHIFT SUMMARY PT IS A&OX4, PLEASANT AND COOPERATIVE WITH CARE. VSS. PT IS RECEIVING ABX FOR CELLULITIS. FENTANYL PATCH ON LEFT SHOULDER FOR PAIN. PT IS INDEPENDENT IN THE ROOM. NO ACUTE CHANGES THIS SHIFT. CALL LIGHT WITHIN REACH
[2024-11-06 03:13] VITALS: BP 116/72
--- NOTE | 2024-11-06 03:50 | NUR ---
SHIFT SUMMARY ADMITTED FOR RIGHT UPPER THIGH CELLULITIS. FULL CODE. IV ANTIB RX ARE SCHEDULED. PAIN MEDICATION GIVEN THIS SHIFT. ON RA. REGULAR DIET. A&O X4. INDEPENDENT IN ROOM. POWERGLIDE IN LUE. BLOOD CULTURES +. DR. PASTOR IS SURGICAL CONSULT. NO NEW CONCERNS THIS SHIFT.
[2024-11-06 07:39] VITALS: BP 110/71
[2024-11-06 08:44] LABS: Hematocrit 32.9 % (33.0-51.0); Hemoglobin 10.6 g/dL (11.5-16.0); Mean Corpuscular HGB Conc 32.2 g/dL (31.5-36.5); Mean Corpuscular Volume 101 fL (80-100); NRBC ABSOLUTE 0.00 K/mm3 (0.00-0.02); NRBC Auto 0.0 /100 WBC (0.0-0.2); Platelet Count 558 K/mm3 (150-400); RDW Coefficient Variation 13.4 % (11.7-14.2); RDW Standard Deviation 48.7 fL (35.1-46.3)
[2024-11-06 09:04] LABS: Alanine Aminotransfer (ALT/SGP 68.0 U/L (12-78); Albumin, Blood 2.7 g/dL (3.4-5.0); Albumin/Globulin Ratio 0.6 (0.8-1.8); Anion Gap 8.0 mmol/L (3-11); Aspartate Aminotrans (AST/SGOT 20.0 U/L (12-37); Bilirubin, Total 0.4 mg/dL (0.1-1.0); Blood Urea Nitrogen 10.0 mg/dL (8-24); CO2, Blood 27.0 mmol/L (21-32); Calcium, Blood 9.4 mg/dL (8.5-10.1); Chloride, Blood 105.0 mmol/L (98-108); Creatinine, Blood 0.67 mg/dL (0.40-1.00); Globulin, Blood 4.8 g/dL (2.2-4.0); Glucose, Blood 100.0 mg/dL (70-99); Potassium, Blood 4.1 mmol/L (3.5-5.5); Sodium, Blood 136.0 mmol/L (136-145); Total Protein, Blood 7.5 g/dL (6.4-8.2)
[2024-11-06 09:45] LABS: BAND PERCENT MAN 1 % (0-8); BASOPHILS ABSOLUTE MAN 0.00 K/mm3 (0.00-0.23); BASOPHILS PERCENT MAN 0 % (0-2); EOSINOPHILS ABSOLUTE MAN 0.28 K/mm3 (0.00-0.68); EOSINOPHILS PERCENT MAN 2 % (0-6); LYMPHOCYTES ABSOLUTE MAN 2.30 K/mm3 (0.84-5.20); LYMPHOCYTES PERCENT MAN 16 % (21-46); METAMYELOCYTE ABSOLUTE MAN 0.14 K/mm3 (0.00-0.00); METAMYELOCYTE PERCENT MAN 1 % (0-0); MONOCYTES ABSOLUTE MAN 0.72 K/mm3 (0.16-1.47); MONOCYTES PERCENT MAN 5 % (4-13); MYELOCYTE ABSOLUTE MAN 0.57 K/mm3 (0.00-0.00); MYELOCYTE PERCENT MAN 4 % (0-0); NEUTROPHILS ABSOLUTE MAN 10.38 K/mm3 (1.96-9.15); SEG NEUTROPHILS PERCENT MAN 71 % (41-73)
[2024-11-06 10:38] VITALS: BP 117/66
[2024-11-06 16:07] VITALS: BP 133/77
--- NOTE | 2024-11-06 18:22 | NUR ---
SHIFT SUMMARY PT HAD ULTRASOUND OF RLE COMPLETED THIS SHIFT. NO SURGICAL INTERVENTION. PLAN FOR D/C TOMORROW. PAIN MANAGED PER EMAR. NO ACUTE CHANGES. CALL LIGHT WITHIN REACH AND PT ABLE TO MAKE NEEDS KNOWN.
[2024-11-06 20:24] VITALS: BP 129/70
[2024-11-07 00:17] VITALS: BP 127/62
[2024-11-07 03:27] VITALS: BP 121/73
--- NOTE | 2024-11-07 03:46 | NUR ---
SHIFT SUMMARY ADMITTED FOR CELLULITIS OF RIGHT UPPER THIGH. FULL CODE. IV ANTIB RX ARE SCHEDULED. PLAN IS FOR DC HOME. PAIN RX GIVEN THIS SHIFT, FENTANYL PATCH IN PLACE ALSO. SHE IS A&O X4, INDEPENDENT, REGULAR DIET, ON RA. TELEMETRY: NSR @ 89 BPM. POWERGLIDE IN LUE. BLOOD CULTURES WERE POSITIVE. NO NEW CONCERNS OTHER THAN PAIN MANAGEMENT THIS SHIFT.
[2024-11-07 07:33] VITALS: BP 118/78
--- NOTE | 2024-11-07 07:36 | NUR ---
CARE ASSUMPTION PT A&OX4. SP02>90% ON RA. TELEMETRY SHOWS NSR, HR 78 PER ROLL BUCKER. PT UP TO BATHROOM INDEPEDENTLY. C/O OF MILD PAIN IN R UPPER THIGH, RED, SWOLLEN, DRESSING C/D/I. PT STATES DRAMATIC DECREASE IN SURFACE AREA OF CELLULITIS, STATES IT USED TO BE DOWN TO HER KNEE. PT PLEASED WITH IMPROVEMENT. STATES EAGER TO GO HOME. REQUESTING OXY PRN TO STAY ON TOP OF PAIN. PT RESTING IN ROOM, CALL LIGHT IN REACH.
[2024-11-07 10:44] VITALS: BP 129/77
--- NOTE | 2024-11-07 11:54 | NUR ---
DISCHARGE NO ACUTE CHANGES SINCE CARE ASSUMPTION. PT A&OX4, VSS. INDEPENDENT IN ROOM. PG REMOVED. TELEMETRY REMOVED. ABX SENT TO [facility] PER PT REQUEST BY MD PACKER. ABX INFUSED PER EMAR PRIOR TO PG REMOVAL. DISCHARGE PAPER WORK REVIEWED W/ PT. PT AMBULATED TO PRIVATE VEHICLE W/ FAMILY AND ALL PERSONAL BELONGINGS.
== END 2024-11-07 11:27 | disposition home or self-care (01) | DRG 872 ==
LOC: ER 18:19 → ERHOLD 18:20 → MEDS 22:47 → ERHOLD 22:47 → PCU 10-30 15:13 → MEDS 10-31 17:00 → ENPENDDIS 11-07 09:07 → MEDS 11-07 11:27
PROVIDERS: Internal Medicine; Physician Assistant; Student in an Organized Health Care Education/Training Program; ADMIT Family Medicine
DX: A40.0 Sepsis due to streptococcus, group A (principal); L03.115 Cellulitis of right lower limb; E87.1 Hypo-osmolality and hyponatremia; G43.909 Migraine, unspecified, not intractable, without status migrainosus; J45.909 Unspecified asthma, uncomplicated; E87.6 Hypokalemia; R00.0 Tachycardia, unspecified; D50.9 Iron deficiency anemia, unspecified; Z87.891 Personal history of nicotine dependence; Z90.89 Acquired absence of other organs; Z88.0 Allergy status to penicillin; Z88.1 Allergy status to other antibiotic agents
CPT/HCPCS: 36415; 73701; 76882; 80048; 80053; 80202; 83540; 83550; 83605; 84132; 85025; 85027; 87040; 87070; 87075; 87147; 87205; 93005; 93010; 94760; 96374-59; 96375-59; 99284-25; A9270; C1751; J0690; J0696; J1171; J1650; J1750; J1885; J2185; J2270; J2405; J3010; J3373; J3480; J7030; J7040; J7050; J7120; Q9967